=== PATIENT | female | born 1990 | race Caucasian/White ===

== ENCOUNTER 2016-10-11 07:20 | Emergency (ER) | payer OTHER ==
[~2016-10-11] VITALS: Ht 170.2 cm; Wt 111.6 kg
[~2016-10-11 07:20] MED LIST: HYDR-971 PO; NAPR550T PO
[2016-10-11 07:30] VITALS: BP 188/98
[2016-10-11] MEDS ORDERED: MORP15TA PO (07:37)
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
[2016-10-11] MEDS ORDERED: MORPHINE IR 15 MG TABLET PO ONE (07:45)
--- NOTE | 2016-10-11 08:52 | RAD ---
Indication injury, pain. AP oblique and lateral views of the right ankle were obtained. Talar screws are noted. There are degenerative changes at the tibiotalar joint and between the calcaneus and talus. An acute bony finding is not seen.
== END 2016-10-11 09:15 | disposition home or self-care (01) ==
LOC: ER 07:28
DX: M25.571 Pain in right ankle and joints of right foot (principal); F41.9 Anxiety disorder, unspecified; F31.9 Bipolar disorder, unspecified; I10 Essential (primary) hypertension; G43.909 Migraine, unspecified, not intractable, without status migrainosus; Z90.49 Acquired absence of other specified parts of digestive tract; G47.00 Insomnia, unspecified; Z88.8 Allergy status to other drugs, medicaments and biological substances
CPT/HCPCS: 73610; 99284

== ENCOUNTER 2017-01-19 19:50 | Emergency (ER) | payer OTHER ==
[~2017-01-19] VITALS: Ht 167.6 cm; Wt 109.8 kg
[~2017-01-19 19:50] MED LIST changes: +MORP15TA PO
[2017-01-19 20:19] LABS: BILIRUBIN,URINE SMALL (NEG); GLUCOSE,URINE NEGATIVE (NEG); NITRITE,URINE POSITIVE (NEG); PH,URINE 5.5; PROTEIN,URINE 30 mg/dL (NEG-TRACE)
[2017-01-19 20:21] LABS: BASO # 0.1 x10^3/uL (0.0-0.2); BASO % 1 % (0-3); EOS % 2 % (0-3); HEMATOCRIT 34.8 % (36.0-47.0); LYMPH # 2.2 x10^3/uL (1.0-4.8); LYMPH % 20 % (24-48); MEAN CORPUSCULAR HEMOGLOBIN 26 pg (25-35); MEAN CORPUSCULAR HGB CONC 32 g/dL (31-37); MEAN CORPUSCULAR VOLUME 81 fL (79-100); MONO % 6 % (0-9); NEUT % 70 % (31-73); PLATELET COUNT 290 x10^3/uL (140-400); RED BLOOD COUNT 4.31 x10^6/uL (3.50-5.40); RED CELL DISTRIBUTION WIDTH 17.2 % (11.5-14.5)
[2017-01-19 20:27] LABS: BACTERIA,URINE FEW /HPF (0-FEW); RBC,URINE 0 /HPF (0-2); SQUAMOUS EPITHELIAL CELL,UR MANY /LPF; WBC,URINE >40 /HPF (0-4)
[2017-01-19 20:36] LABS: CALCIUM 8.9 mg/dL (8.5-10.1); CREATININE 1.1 mg/dL (0.6-1.0); GFR 59.1; POTASSIUM 3.6 mmol/L (3.5-5.1)
[2017-01-19 20:41] LABS: ALBUMIN 3.3 g/dL (3.4-5.0); ALBUMIN/GLOBULIN RATIO 0.8 (1.0-1.7); TOTAL BILIRUBIN 0.1 mg/dL (0.2-1.0); TOTAL PROTEIN 7.4 g/dL (6.4-8.2)
[2017-01-19] MEDS ORDERED: HYDROmorphone 2 MG/ML VIAL IV/SQ PRN (20:45)
[2017-01-19] MEDS ORDERED: ONDANSETRON PF 4 MG/2 ML VIAL. IV ONE (21:00)
[2017-01-19] MEDS ORDERED: IV NORMAL SALINE 1000ML BAG 1,000 ML IV SCH (21:00)
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
[2017-01-19] MEDS ORDERED: SULF1TAB24 PO (23:06)
[2017-01-19] MEDS ORDERED: HYDR-2758 PO (23:06)
[2017-01-19 23:07] VITALS: BP 128/60
== END 2017-01-19 23:33 | disposition home or self-care (01) ==
LOC: ER 19:50
DX: N39.0 Urinary tract infection, site not specified (principal); G43.909 Migraine, unspecified, not intractable, without status migrainosus; I10 Essential (primary) hypertension; F31.9 Bipolar disorder, unspecified; Z90.49 Acquired absence of other specified parts of digestive tract; Z88.8 Allergy status to other drugs, medicaments and biological substances
CPT/HCPCS: 36415; 80053; 81001; 81025; 83690; 85025; 87086; 96365; 96375; 99284; J0690; J1170; J2405; J7030; 87186

== ENCOUNTER 2017-02-09 19:06 | Emergency (ER) | payer OTHER ==
[~2017-02-09] VITALS: Ht 172.7 cm; Wt 109.8 kg
[~2017-02-09 19:06] MED LIST changes: +HYDR-2758 PO; +NAPR-682 PO; -NAPR550T PO; +SULF1TAB24 PO
[2017-02-09 19:16] VITALS: BP 189/112
[2017-02-09] MEDS ORDERED: NAPR500T PO (19:22)
[2017-02-09] MEDS ORDERED: CYCL10TA2 PO (19:22)
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
[2017-02-09] MEDS ORDERED: KETOROLAC 60 MG/2 ML INJ. IM ONE (19:45)
== END 2017-02-09 19:28 | disposition home or self-care (01) ==
LOC: ER 19:06
DX: S46.812A Strain of other muscles, fascia and tendons at shoulder and upper arm level, left arm, initial encounter (principal); I10 Essential (primary) hypertension; G43.909 Migraine, unspecified, not intractable, without status migrainosus; F41.9 Anxiety disorder, unspecified; Z88.8 Allergy status to other drugs, medicaments and biological substances; X58.XXXA Exposure to other specified factors, initial encounter; Y93.89 Activity, other specified; Y99.8 Other external cause status; Y92.89 Other specified places as the place of occurrence of the external cause
CPT/HCPCS: 96372; 99283; J1885

== ENCOUNTER 2017-02-24 10:43 | Emergency (ER) | payer OTHER ==
[~2017-02-24 10:43] MED LIST changes: +CYCL10TA2 PO; +NAPR500T PO
[2017-02-24 10:48] VITALS: BP 164/100
[2017-02-24] MEDS ORDERED: METHOCARBAMOL 500 MG TABLET PO STA (11:13)
[2017-02-24] MEDS ORDERED: traMADol 50 MG TABLET PO ONE (11:15)
[2017-02-24] MEDS ORDERED: predniSONE 20 MG TABLET PO ONE (11:15)
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
[2017-02-24] MEDS ORDERED: METH-37 PO (12:05)
[2017-02-24] MEDS ORDERED: TRAM-48 PO (12:05)
[2017-02-24] MEDS ORDERED: METH4TAB2 PO (12:05)
== END 2017-02-24 12:07 | disposition home or self-care (01) ==
LOC: ER 10:43
DX: G89.29 Other chronic pain (principal); M54.89 Other dorsalgia; I10 Essential (primary) hypertension; F31.9 Bipolar disorder, unspecified; G43.909 Migraine, unspecified, not intractable, without status migrainosus; G47.00 Insomnia, unspecified; Z90.49 Acquired absence of other specified parts of digestive tract; Z88.8 Allergy status to other drugs, medicaments and biological substances
CPT/HCPCS: 99284; J7512

== ENCOUNTER 2017-03-16 13:25 | Emergency (ER) | payer OTHER ==
[~2017-03-16 13:25] MED LIST changes: +METH-37 PO; +METH4TAB2 PO; +TRAM-48 PO
[2017-03-16 13:40] VITALS: BP 159/94
[2017-03-16 14:01] LABS: BILIRUBIN,URINE NEGATIVE (NEG); GLUCOSE,URINE NEGATIVE (NEG); NITRITE,URINE NEGATIVE (NEG); PROTEIN,URINE NEGATIVE (NEG-TRACE); UROBILINOGEN,URINE 0.2 mg/dL (0.2 mg/dL)
[2017-03-16] MEDS ORDERED: ONDANSETRON ODT 4 MG TAB.RAPDIS. PO ONE (14:15)
[2017-03-16] MEDS ORDERED: KETOROLAC TROMETHAMINE 10 MG TABLET PO ONE (14:15)
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
[2017-03-16 14:20] LABS: BACTERIA,URINE MODERATE /HPF (0-FEW); RBC,URINE >40 /HPF (0-2); SQUAMOUS EPITHELIAL CELL,UR MOD /LPF
--- NOTE | 2017-03-16 15:56 | RAD ---
CT study of the abdomen and pelvis without contrast Clinical indications: Right sided flank pain and back pain and hematuria. History of kidney stones. Technique: Noncontrast helical CT scanning of the abdomen and pelvis was performed. Without contrast, the sensitivity to detect organ pathology and GI tract pathology is decreased. PQRS Compliance Statement: One or more of the following individualized dose reduction techniques were utilized for this examination: 1. Automated exposure control 2. Adjustment of the mA and/or kV according to patient size 3. Use of iterative reconstruction technique Comparison: None available. Findings: The liver and spleen and pancreas are homogeneous in appearance on this noncontrast study. The spleen is mildly enlarged measuring 13.8 cm in length. The gallbladder is surgically absent. No extra hepatic biliary ductal dilatation is seen. No adrenal mass is evident. No hydronephrosis or hydroureter or urinary tract stone is evident. Urinary bladder wall is smooth. IUD is seen within the central aspect of the uterus which is proper positioning. No dominant ovarian cyst or mass is seen. No focal aneurysmal dilatation of the abdominal aorta is seen. No enlarged abdominal or pelvic lymphadenopathy is seen. The appendix is normal. No obstructive bowel pattern is evident. No free air or free fluid or mesenteric inflammatory change is seen. No lung base consolidation is seen. No osteolytic process is seen. IMPRESSION: No acute abnormality of the abdomen or pelvis is seen. Mild splenomegaly.
== END 2017-03-16 15:40 | disposition left against medical advice (07) ==
LOC: ER 13:25
DX: N39.0 Urinary tract infection, site not specified (principal); F31.9 Bipolar disorder, unspecified; G43.909 Migraine, unspecified, not intractable, without status migrainosus; I10 Essential (primary) hypertension; Z87.442 Personal history of urinary calculi; Z90.49 Acquired absence of other specified parts of digestive tract; Z88.8 Allergy status to other drugs, medicaments and biological substances
CPT/HCPCS: 74176; 81001; 81025; 87086; 99285; Q0162

== ENCOUNTER 2018-05-01 22:26 | Emergency (ER) | payer MEDICAID, OTHER ==
[~2018-05-01] VITALS: Ht 172.7 cm; Wt 122.5 kg
[~2018-05-01 22:26] MED LIST changes: -HYDR-2758 PO; +HYDR-2761 PO; +HYDR-3164 PO; -HYDR-971 PO; +NAPR-683 PO; -NAPR500T PO
[2018-05-01 22:30] VITALS: BP 154/91
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
[2018-05-01] MEDS ORDERED: BENZ100C PO (23:28)
[2018-05-01] MEDS ORDERED: PRED50TA PO (23:28)
[2018-05-01] MEDS ORDERED: PROAIR HFA8.5 GM INH (23:28)
[2018-05-01] MEDS ORDERED: DEXAMETHASONE SOD PHOS 20 MG/5 ML VIAL. PO ONE (23:30)
== END 2018-05-01 23:51 | disposition home or self-care (01) ==
LOC: ER 22:26
DX: J06.9 Acute upper respiratory infection, unspecified (principal); F41.9 Anxiety disorder, unspecified; F31.9 Bipolar disorder, unspecified; I10 Essential (primary) hypertension; G43.909 Migraine, unspecified, not intractable, without status migrainosus; Z90.49 Acquired absence of other specified parts of digestive tract; Z87.442 Personal history of urinary calculi; Z98.890 Other specified postprocedural states; Z88.8 Allergy status to other drugs, medicaments and biological substances
CPT/HCPCS: 81025; 99283; J1100

== ENCOUNTER 2018-05-30 19:06 | Emergency (ER) | payer SELFPAY ==
[~2018-05-30] VITALS: Ht 172.7 cm; Wt 118.8 kg
[~2018-05-30 19:06] MED LIST changes: +ALBU2.5V8 INH; +BENZ100C PO; +PRED50TA PO
[2018-05-30 19:40] LABS: BILIRUBIN,URINE NEGATIVE (NEG); CLARITY,URINE CLEAR; COLOR,URINE YELLOW; NITRITE,URINE NEGATIVE (NEG); PROTEIN,URINE NEGATIVE (NEG-TRACE); UROBILINOGEN,URINE 0.2 mg/dL (0.2 mg/dL)
[2018-05-30] MEDS ORDERED: KETOROLAC 30 MG/ML VIAL. IV ONE (19:45)
[2018-05-30] MEDS ORDERED: fentaNYL PF VIAL 100 MCG/2 ML VIAL IV ONE ×2 (19:45→20:30)
[2018-05-30] MEDS ORDERED: ONDANSETRON PF 4 MG/2 ML VIAL. IV ONE (19:45)
[2018-05-30] MEDS ORDERED: IV NORMAL SALINE 1000ML BAG 1,000 ML IV ONE (19:45)
[2018-05-30 19:51] LABS: BASO # 0.1 x10^3/uL (0.0-0.2); BASO % 1 % (0-3); EOS # 0.5 x10^3/uL (0.0-0.7); EOS % 6 % (0-3); HEMOGLOBIN 13.9 g/dL (12.0-15.5); LYMPH # 2.2 x10^3/uL (1.0-4.8); LYMPH % 26 % (24-48); MEAN CORPUSCULAR HEMOGLOBIN 29 pg (25-35); MEAN CORPUSCULAR HGB CONC 35 g/dL (31-37); MEAN CORPUSCULAR VOLUME 83 fL (79-100); MONO # 0.5 x10^3/uL (0.0-1.1); MONO % 6 % (0-9); NEUT % 60 % (31-73); PLATELET COUNT 272 x10^3/uL (140-400); RED CELL DISTRIBUTION WIDTH 16.1 % (11.5-14.5); WHITE BLOOD COUNT 8.4 x10^3/uL (4.0-11.0)
[2018-05-30 19:59] LABS: CALCIUM 8.9 mg/dL (8.5-10.1); GFR 65.1; POTASSIUM 3.6 mmol/L (3.5-5.1)
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
[2018-05-30 20:03] LABS: BACTERIA,URINE MODERATE /HPF (0-FEW); RBC,URINE OCC /HPF (0-2); SQUAMOUS EPITHELIAL CELL,UR MANY /LPF; WBC,URINE OCC /HPF (0-4)
[2018-05-30 20:05] LABS: ALBUMIN 3.1 g/dL (3.4-5.0); ALBUMIN/GLOBULIN RATIO 0.8 (1.0-1.7); TOTAL BILIRUBIN 0.1 mg/dL (0.2-1.0); TOTAL PROTEIN 7.1 g/dL (6.4-8.2)
--- NOTE | 2018-05-30 20:44 | RAD ---
PQRS Compliance Statement: One or more of the following individualized dose reduction techniques were utilized for this examination: 1. Automated exposure control 2. Adjustment of the mA and/or kV according to patient size 3. Use of iterative reconstruction technique CT ABDOMEN PELVIS WO CONTRAST Clinical Indication: RLQ & RIGHT FLANK PAIN, BLOOD IN URINE, X 1 DAY Comparison: CT abdomen and pelvis without contrast, March 16, 2017. Technique: Helical CT imaging of the abdomen and pelvis is performed without IV or oral contrast. Findings: Mild atelectasis or scarring in the bilateral lower lobes. Cardiac size is normal. Cholecystectomy. The liver, spleen, pancreas, adrenal glands, abdominal aorta, and kidneys are normal. No obvious abnormality of the stomach. Small fat-containing umbilical hernia. There is no dilated small bowel. There are a few diverticula of the sigmoid colon without inflammation. There is no colon wall thickening. The appendix is normal. No abdominal adenopathy or free fluid. Urinary bladder is not well distended, otherwise normal. IUD in the uterus, positioned more inferiorly than on the prior study. The right ovary is larger than the left, there is at least one functional cyst measuring 1.9 cm. There is no pelvic free fluid. There is right femur intramedullary franklin. Schmorl's node superior endplate of L4. IMPRESSION: 1. No obstructive uropathy. 2. The appendix is normal. 3. Right ovary is larger than the left. There is at least one small right ovary functional cyst. There is no pelvic free fluid. 4. IUD in the uterus, positioned more inferiorly than on the prior study. 5. Minimal sigmoid colon diverticulosis without diverticulitis. Electronically signed by: Desean Kirkpatrick MD (05/30/2018 8:40 PM) [id number]
[2018-05-30 20:50] VITALS: BP 148/86
[2018-05-30] MEDS ORDERED: HYDR-3164 PO (20:55)
[2018-05-30] MEDS ORDERED: CEPH-264 PO (20:55)
[2018-05-30] MEDS ORDERED: HYDROcodone/APAP 5/325MG 1 TAB TABLET ONE (21:11)
[2018-05-30] MEDS ORDERED: HYDROcodone/APAP 5/325MG 1 TAB TABLET PO ONE (21:15)
== END 2018-05-30 21:21 | disposition home or self-care (01) ==
LOC: ER 19:06
DX: N39.0 Urinary tract infection, site not specified (principal); N83.201 Unspecified ovarian cyst, right side; R11.2 Nausea with vomiting, unspecified; I10 Essential (primary) hypertension; G43.909 Migraine, unspecified, not intractable, without status migrainosus; Z87.442 Personal history of urinary calculi; Z90.49 Acquired absence of other specified parts of digestive tract; Z98.890 Other specified postprocedural states; Z88.8 Allergy status to other drugs, medicaments and biological substances
CPT/HCPCS: 36415; 74176; 80053; 81001; 81025; 85025; 87086; 96361; 96374; 96375; 96376; 99284; J1885; J2405; J3010; J7030; 87186

== ENCOUNTER 2018-06-01 19:55 | Emergency (ER) | payer SELFPAY ==
[~2018-06-01] VITALS: Ht 172.7 cm; Wt 118.8 kg
[~2018-06-01 19:55] MED LIST changes: +CEPH-264 PO
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
[2018-06-01] MEDS ORDERED: fentaNYL PF VIAL 100 MCG/2 ML VIAL IV ONE (20:45)
[2018-06-01] MEDS ORDERED: ONDANSETRON PF 4 MG/2 ML VIAL. IV ONE (20:45)
[2018-06-01] MEDS ORDERED: KETOROLAC 15 MG/ML VIAL. IV ONE (20:45)
[2018-06-01 20:55] LABS: BASO # 0.1 x10^3/uL (0.0-0.2); BASO % 1 % (0-3); EOS # 0.5 x10^3/uL (0.0-0.7); EOS % 6 % (0-3); HEMATOCRIT 40.1 % (36.0-47.0); HEMOGLOBIN 13.6 g/dL (12.0-15.5); LYMPH # 2.2 x10^3/uL (1.0-4.8); LYMPH % 24 % (24-48); MEAN CORPUSCULAR HEMOGLOBIN 29 pg (25-35); MEAN CORPUSCULAR HGB CONC 34 g/dL (31-37); MEAN CORPUSCULAR VOLUME 84 fL (79-100); MONO # 0.7 x10^3/uL (0.0-1.1); MONO % 7 % (0-9); NEUT # 5.9 x10^3uL (1.8-7.7); NEUT % 63 % (31-73); PLATELET COUNT 283 x10^3/uL (140-400); RED BLOOD COUNT 4.78 x10^6/uL (3.50-5.40); RED CELL DISTRIBUTION WIDTH 16.1 % (11.5-14.5); WHITE BLOOD COUNT 9.5 x10^3/uL (4.0-11.0)
[2018-06-01 21:00] LABS: BILIRUBIN,URINE NEGATIVE (NEG); CLARITY,URINE CLEAR; COLOR,URINE YELLOW; NITRITE,URINE NEGATIVE (NEG); PROTEIN,URINE NEGATIVE (NEG-TRACE); UROBILINOGEN,URINE 0.2 mg/dL (0.2 mg/dL)
[2018-06-01 21:11] LABS: CALCIUM 8.7 mg/dL (8.5-10.1); CREATININE 0.7 mg/dL (0.6-1.0); GFR 98.3; POTASSIUM 3.9 mmol/L (3.5-5.1)
[2018-06-01 21:16] LABS: ALBUMIN 3.2 g/dL (3.4-5.0); ALBUMIN/GLOBULIN RATIO 0.8 (1.0-1.7); TOTAL BILIRUBIN 0.2 mg/dL (0.2-1.0); TOTAL PROTEIN 7.2 g/dL (6.4-8.2)
[2018-06-01 21:29] LABS: BACTERIA,URINE FEW /HPF (0-FEW); RBC,URINE OCC /HPF (0-2); SQUAMOUS EPITHELIAL CELL,UR MANY /LPF
[2018-06-01] MEDS ORDERED: MORPHINE SULFATE 4 MG/ML VIAL. IV ONE (21:45)
[2018-06-01 22:12] VITALS: BP 143/71
--- NOTE | 2018-06-01 22:12 | RAD ---
PELVIS W/TV Clinical Indication: PELVIC PAIN STARTED ON THE RT LAST FRIDAY INCREASE PELVIC PAIN Comparison: None. TECHNIQUE: Real-time ultrasound imaging of the pelvis using transabdominal and transvaginal window is performed. Findings: Uterus measures 8.1 x 5.4 x 4.5 cm. No focal abnormality. Endometrial stripe is normal measuring 9 mm. IUD is noted in the endocervical canal. No pelvic free fluid. The left ovary measures 3.7 x 2.1 x 2 cm. There is normal blood flow. The right ovary measures 5.2 x 4.3 x 3.7 cm. There is a right ovarian cyst with hypoechoic internal echoes measuring 4.1 x 3.3 x 3.3 cm. Color Doppler interrogation is negative. Cyst may be hemorrhagic. There is a simple functional cyst of the right ovary measuring up to 2.4 cm. Normal blood flow in the right ovary. IMPRESSION: 1. There is a 4.1 cm probable hemorrhagic cyst of the right ovary. 2. No pelvic free fluid. 3. Normal blood flow in the ovaries. 4. IUD is seen in the endocervical canal. Electronically signed by: Desean Kirkpatrick MD (06/01/2018 10:08 PM) [facility]
[2018-06-01] MEDS ORDERED: OXYC1TAB15 PO (22:23)
--- NOTE | 2018-06-03 09:10 | VNOTE ---
CALL BACK NOTE CALL BACK -spoke with pt re: cx result. 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
== END 2018-06-01 22:48 | disposition home or self-care (01) ==
LOC: ER 19:55
DX: N83.201 Unspecified ovarian cyst, right side (principal); I10 Essential (primary) hypertension; Z90.49 Acquired absence of other specified parts of digestive tract; Z88.8 Allergy status to other drugs, medicaments and biological substances
CPT/HCPCS: 36415; 76830; 76856; 80053; 81001; 81025; 85025; 96374; 96375; 99284; J1885; J2270; J2405; J3010

== ENCOUNTER 2018-07-06 11:57 | Emergency (ER) | payer SELFPAY ==
[~2018-07-06] VITALS: Ht 172.7 cm; Wt 119.7 kg
[~2018-07-06 11:57] MED LIST changes: +OXYC1TAB15 PO
[2018-07-06] MEDS ORDERED: IV NORMAL SALINE 1000ML BAG 1,000 ML IV ONE (12:30)
[2018-07-06 12:36] LABS: BILIRUBIN,URINE NEGATIVE (NEG); CLARITY,URINE CLEAR; COLOR,URINE YELLOW; NITRITE,URINE NEGATIVE (NEG); PROTEIN,URINE NEGATIVE (NEG-TRACE); UROBILINOGEN,URINE 0.2 mg/dL (0.2 mg/dL)
[2018-07-06 12:44] LABS: U PREG PATIENT NEGATIVE (NEG)
[2018-07-06] MEDS ORDERED: KETOROLAC 30 MG/ML VIAL. IV ONE (12:45)
[2018-07-06] MEDS ORDERED: ONDANSETRON PF 4 MG/2 ML VIAL. IV ONE (12:45)
[2018-07-06] MEDS ORDERED: fentaNYL PF VIAL 100 MCG/2 ML VIAL IV ONE ×2 (12:45→15:00)
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
[2018-07-06 12:51] LABS: BASO # 0.2 x10^3/uL (0.0-0.2); BASO % 2 % (0-3); EOS # 0.5 x10^3/uL (0.0-0.7); EOS % 6 % (0-3); HEMATOCRIT 42.1 % (36.0-47.0); HEMOGLOBIN 13.9 g/dL (12.0-15.5); LYMPH # 1.9 x10^3/uL (1.0-4.8); LYMPH % 21 % (24-48); MEAN CORPUSCULAR HEMOGLOBIN 28 pg (25-35); MEAN CORPUSCULAR HGB CONC 33 g/dL (31-37); MEAN CORPUSCULAR VOLUME 85 fL (79-100); MONO # 0.4 x10^3/uL (0.0-1.1); MONO % 5 % (0-9); NEUT # 5.9 x10^3uL (1.8-7.7); NEUT % 67 % (31-73); PLATELET COUNT 302 x10^3/uL (140-400); RED BLOOD COUNT 4.95 x10^6/uL (3.50-5.40); RED CELL DISTRIBUTION WIDTH 15.3 % (11.5-14.5); WHITE BLOOD COUNT 8.9 x10^3/uL (4.0-11.0)
[2018-07-06 12:54] LABS: BACTERIA,URINE MANY /HPF (0-FEW); SQUAMOUS EPITHELIAL CELL,UR MANY /LPF
[2018-07-06 12:55] LABS: RBC,URINE 0 /HPF (0-2)
--- NOTE | 2018-07-06 13:47 | RAD ---
PQRS Compliance statement: One or more of the following individualized dose reduction techniques were utilized for this examination: 1. Automated exposure control. 2. Adjustment of the mA and/or kV according to patient size. 3. Use of iterative reconstruction technique. Indication:R FLANK PAIN PREV SENT TECHNIQUE: CT abdomen and pelvis without IV contrast with multiplanar reformats. COMPARISON: 05/30/2018 FINDINGS: Limited evaluation of solid abdominal and pelvic organs due to lack of IV contrast. Heart is normal in size. No pericardial or pleural effusion. Breathing motion artifact is seen in the lung bases. Noncontrast appearance of the liver, spleen, pancreas, adrenals within normal limits. Status post cholecystectomy. Punctate nonobstructing left renal stone. No hydronephrosis. No retroperitoneal or pelvic adenopathy. No free pelvic fluid or ascites. No bowel obstruction. Normal appendix. Anteverted uterus with IUD no suspicious bony lesion. IMPRESSION: Limited evaluation of solid abdominal and pelvic organs due to lack of IV contrast. Punctate nonobstructing left renal stone. Electronically signed by: Edwar Eason DO (07/06/2018 1:43 PM) [id number]
[2018-07-06 14:08] LABS: CALCIUM 9.1 mg/dL (8.5-10.1); CREATININE 0.8 mg/dL (0.6-1.0); GFR 84.2; POTASSIUM 3.8 mmol/L (3.5-5.1)
[2018-07-06 14:13] LABS: ALBUMIN 3.3 g/dL (3.4-5.0); ALBUMIN/GLOBULIN RATIO 0.8 (1.0-1.7); TOTAL BILIRUBIN 0.1 mg/dL (0.2-1.0); TOTAL PROTEIN 7.2 g/dL (6.4-8.2)
--- NOTE | 2018-07-06 15:46 | RAD ---
Indication:History of ovarian cysts. Right lower abdominal pain. TECHNIQUE: Grayscale, color Doppler and spectral waveform images of the pelvis obtained. COMPARISON: 06/01/2018 FINDINGS: The uterus is anteverted and measures 8.4 x 5.8 x 6.0 cm (longitudinal, AP, transverse). IUD is noted in the lower endometrial canal. Trace amount of fluid is seen in the endocervical canal. The right ovary measures 5.3 x 4.3 x 4.5 cm and shows blood flow. There is a 3.7 x 3.3 x 3.2 cm well-circumscribed isoechoic lesion in the right ovary, previously measuring 4.2 x 3.3 x 3.0 cm. Simple appearing cyst is seen in the right ovary measuring 2.4 x 2.1 x 1.8 cm, previously 2.0 x 2.5 x 1.5 cm. Left ovary measures 3.1 x 3.0 x 3.0 cm and shows blood flow. IMPRESSION: 1. IUD is seen in the lower endocervical canal. 2. Minimal interval decrease in the size of right ovarian isoechoic predominantly solid lesion when compared to previous exam. Differential diagnoses includes hemorrhagic cyst or endometrioma. Short-term follow-up with ultrasound in 2 months recommended. 3. Relatively stable simple cyst in the right ovary. Bilateral ovaries demonstrate evidence of blood flow. Electronically signed by: Edwar Esaon DO (07/06/2018 3:42 PM) [id number]
[2018-07-06 16:00] VITALS: BP 142/80
[2018-07-06] MEDS ORDERED: IBUP-1007 PO (16:04)
[2018-07-06] MEDS ORDERED: HYDR-3164 PO (16:04)
[2018-07-06] MEDS ORDERED: HYDROcodone/APAP 5/325MG 1 TAB TABLET PO ONE (16:15)
== END 2018-07-06 16:27 | disposition home or self-care (01) ==
LOC: ER 11:57
DX: N83.201 Unspecified ovarian cyst, right side (principal); N20.0 Calculus of kidney; I10 Essential (primary) hypertension; Z90.49 Acquired absence of other specified parts of digestive tract
CPT/HCPCS: 36415; 74176; 76830; 76856; 80053; 81001; 81025; 85025; 87086; 96374; 96375; 96376; 99284; J1885; J2405; J3010; J7030

== ENCOUNTER 2018-09-28 17:29 | Emergency (ER) | payer OTHER ==
[~2018-09-28] VITALS: Ht 172.7 cm; Wt 119.7 kg
[~2018-09-28 17:29] MED LIST changes: +IBUP-1007 PO
[2018-09-28] MEDS ORDERED: HYDROcodone/APAP 5/325MG 1 TAB TABLET PO ONE (18:15)
[2018-09-28 18:18] LABS: BILIRUBIN,URINE NEGATIVE (NEG); CLARITY,URINE CLEAR; COLOR,URINE YELLOW; NITRITE,URINE NEGATIVE (NEG); PH,URINE 6.5; PROTEIN,URINE NEGATIVE (NEG-TRACE); UROBILINOGEN,URINE 0.2 mg/dL (0.2 mg/dL)
[2018-09-28 18:23] LABS: SQUAMOUS EPITHELIAL CELL,UR MANY /LPF
[2018-09-28 18:25] LABS: BACTERIA,URINE MODERATE /HPF (0-FEW); WBC,URINE 20-40 /HPF (0-4)
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
[2018-09-28 18:58] LABS: BASO # 0.2 x10^3/uL (0.0-0.2); BASO % 1 % (0-3); EOS # 0.5 x10^3/uL (0.0-0.7); EOS % 4 % (0-3); HEMATOCRIT 42.2 % (36.0-47.0); HEMOGLOBIN 14.3 g/dL (12.0-15.5); LYMPH # 2.6 x10^3/uL (1.0-4.8); LYMPH % 23 % (24-48); MEAN CORPUSCULAR HEMOGLOBIN 28 pg (25-35); MEAN CORPUSCULAR HGB CONC 34 g/dL (31-37); MEAN CORPUSCULAR VOLUME 83 fL (79-100); MONO # 0.6 x10^3/uL (0.0-1.1); MONO % 5 % (0-9); NEUT # 7.6 x10^3uL (1.8-7.7); NEUT % 66 % (31-73); PLATELET COUNT 279 x10^3/uL (140-400); RED BLOOD COUNT 5.07 x10^6/uL (3.50-5.40); RED CELL DISTRIBUTION WIDTH 14.6 % (11.5-14.5); WHITE BLOOD COUNT 11.4 x10^3/uL (4.0-11.0)
[2018-09-28 19:18] LABS: CALCIUM 8.5 mg/dL (8.5-10.1); CREATININE 0.8 mg/dL (0.6-1.0); GFR 84.2
[2018-09-28 19:24] LABS: ALBUMIN 3.5 g/dL (3.4-5.0); ALBUMIN/GLOBULIN RATIO 0.9 (1.0-1.7); TOTAL BILIRUBIN 0.3 mg/dL (0.2-1.0); TOTAL PROTEIN 7.6 g/dL (6.4-8.2)
[2018-09-28 19:53] VITALS: BP 164/99
[2018-09-28] MEDS ORDERED: CEPH500C PO (20:14)
--- NOTE | 2018-09-28 20:29 | RAD ---
Pelvic ultrasound HISTORY: Right abdominal pain. FINDINGS: Endovaginal scanning is performed. Study is technically difficult due to large body habitus. The uterus measures 8.2 x 5.8 x 4.8 cm. Endometrial stripe measures 8 mm. There may be an intrauterine device in place. Trace fluid is seen within the cervix. Right ovary measures 5.9 x 4.2 x 3.5 cm with intact blood supply. There is an echogenic lesion within the right ovary measuring 3.7 cm diameter, may be a hemorrhagic cyst, this does demonstrate posterior acoustic enhancement. Follicles are also identified within the right ovary, largest simple appearing cyst measures 2.1 cm long axis diameter. Left ovary not visualized. No significant free fluid is identified. IMPRESSION: Echogenic lesion within the right ovary, may represent a 3.7 cm hemorrhagic cyst. This was also seen on the prior study of 07/06/2018. Therefore, recommend continued sonographic follow-up, in about 6 weeks, to better exclude other etiology. Electronically signed by: Scott Brown MD (09/28/2018 8:26 PM) [facility]
== END 2018-09-28 20:24 | disposition home or self-care (01) ==
LOC: ER 17:29
DX: N39.0 Urinary tract infection, site not specified (principal); I10 Essential (primary) hypertension; F17.200 Nicotine dependence, unspecified, uncomplicated; Z87.442 Personal history of urinary calculi; Z90.49 Acquired absence of other specified parts of digestive tract; Z88.8 Allergy status to other drugs, medicaments and biological substances
CPT/HCPCS: 36415; 76856; 80053; 81001; 81025; 85025; 87086; 99285-25

== ENCOUNTER 2018-10-28 18:03 | Emergency (ER) | payer OTHER ==
[~2018-10-28] VITALS: Ht 172.7 cm; Wt 121.6 kg
[~2018-10-28 18:03] MED LIST changes: +CEPH500C PO
[2018-10-28 18:24] LABS: BILIRUBIN,URINE NEGATIVE (NEG); CLARITY,URINE CLOUDY; COLOR,URINE YELLOW; NITRITE,URINE NEGATIVE (NEG); PROTEIN,URINE NEGATIVE (NEG-TRACE); UROBILINOGEN,URINE 0.2 mg/dL (0.2 mg/dL)
[2018-10-28] MEDS ORDERED: ONDANSETRON PF 4 MG/2 ML VIAL. IV ONE (18:30)
[2018-10-28] MEDS ORDERED: MORPHINE SULFATE 10 MG/ML VIAL. IV ONE (18:30)
[2018-10-28] MEDS ORDERED: TAMSULOSIN 0.4 MG CAP.ER.24H. PO ONE (18:30)
[2018-10-28] MEDS ORDERED: KETOROLAC 30 MG/ML VIAL. IV ONE (18:30)
[2018-10-28 18:31] LABS: SQUAMOUS EPITHELIAL CELL,UR MOD /LPF
[2018-10-28 18:32] LABS: BACTERIA,URINE MANY /HPF (0-FEW); WBC,URINE TNTC /HPF (0-4)
[2018-10-28 18:40] LABS: BASO # 0.1 x10^3/uL (0.0-0.2); BASO % 1 % (0-3); EOS # 0.5 x10^3/uL (0.0-0.7); EOS % 5 % (0-3); HEMOGLOBIN 14.6 g/dL (12.0-15.5); LYMPH # 2.5 x10^3/uL (1.0-4.8); LYMPH % 25 % (24-48); MEAN CORPUSCULAR HEMOGLOBIN 28 pg (25-35); MEAN CORPUSCULAR HGB CONC 33 g/dL (31-37); MEAN CORPUSCULAR VOLUME 83 fL (79-100); MONO # 0.5 x10^3/uL (0.0-1.1); MONO % 5 % (0-9); NEUT # 6.4 x10^3uL (1.8-7.7); NEUT % 65 % (31-73); PLATELET COUNT 273 x10^3/uL (140-400); RED BLOOD COUNT 5.27 x10^6/uL (3.50-5.40); RED CELL DISTRIBUTION WIDTH 14.9 % (11.5-14.5)
[2018-10-28] MEDS ORDERED: IV NORMAL SALINE 1000ML BAG 1,000 ML IV ONE (18:45)
[2018-10-28 18:52] LABS: CREATININE 0.8 mg/dL (0.6-1.0); GFR 84.2; POTASSIUM 3.6 mmol/L (3.5-5.1)
[2018-10-28 18:57] LABS: ALBUMIN 3.6 g/dL (3.4-5.0); ALBUMIN/GLOBULIN RATIO 0.8 (1.0-1.7); TOTAL BILIRUBIN 0.2 mg/dL (0.2-1.0); TOTAL PROTEIN 7.9 g/dL (6.4-8.2)
[2018-10-28] MEDS ORDERED: HYDROmorphone 2 MG/ML VIAL IV ONE (19:00)
[2018-10-28] MEDS ORDERED: cloNIDine HCL 0.1 MG TABLET PO ONE (19:15)
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
[2018-10-28 19:28] LABS: BARBITURATES NEG (NEG); BENZODIAZEPINES POS (NEG); CANNABINOIDS NEG (NEG); COCAINE NEG (NEG); METHADONE NEG (NEG); OPIATES NEG (NEG); PHENCYCLIDINE NEG (NEG)
[2018-10-28 19:29] LABS: AMPHETAMINE/METHAMPHETAMINE NEG (NEG)
[2018-10-28] MEDS ORDERED: cefTRIAXone IV Push 1 GM VIAL. IVP ONE (19:30)
[2018-10-28 20:56] VITALS: BP 162/104
--- NOTE | 2018-10-28 20:56 | RAD ---
CT scan of the abdomen and pelvis without contrast 10/28/2018 CLINICAL HISTORY: Right flank pain. TECHNIQUE: Unenhanced, contiguous, 2 mm axial sections were obtained through the abdomen and pelvis. One or more of the following individualized dose reduction techniques were utilized for this study: 1. Automated exposure control. 2. Adjustment of the mA and/or kV according to patient size. 3. Use of iterative reconstruction technique. FINDINGS: Comparison study is dated 07/06/2018. Images through the lung bases demonstrate minimal dependent subsegmental atelectasis bilaterally. The liver, spleen, pancreas, adrenal glands are within normal limits. No renal or ureteral calculus is seen. There is no evidence of obstruction of either collecting system. Surgical clips are seen within the gallbladder fossa consistent with a cholecystectomy. No free fluid or free air is within the abdomen. There is no evidence of bowel obstruction. The appendix is well-visualized and is within normal limits. Images through pelvis demonstrate the urinary bladder with urine. A 5.1 cm oval-shaped mass is seen in the right adnexa which is unchanged from the previous examination. An IUD is seen within the expected location of the endometrial canal of the uterus. No free fluid is seen. The osseous structures are unchanged. IMPRESSION: No acute abnormality is seen. Electronically signed by: Tariq Nathan MD (10/28/2018 8:53 PM) [facility]
[2018-10-28] MEDS ORDERED: CEPH-264 PO (21:10)
== END 2018-10-28 21:25 | disposition home or self-care (01) ==
LOC: ER 18:03
DX: N39.0 Urinary tract infection, site not specified (principal); R11.2 Nausea with vomiting, unspecified; I10 Essential (primary) hypertension; Z87.442 Personal history of urinary calculi; Z90.49 Acquired absence of other specified parts of digestive tract; Z88.8 Allergy status to other drugs, medicaments and biological substances
CPT/HCPCS: 36415; 74176; 80053; 80307; 81001; 81025; 83690; 85025; 87086; 96361; 96374; 96375; 99285; G0480; J0696; J1170; J1885; J2270; J2405; J7030; 87186

== ENCOUNTER 2019-01-07 18:09 | Emergency (ER) | payer BC, OTHER ==
[~2019-01-07] VITALS: Ht 172.7 cm; Wt 115.2 kg
[2019-01-07 19:19] LABS: BILIRUBIN,URINE NEGATIVE (NEG); CLARITY,URINE CLEAR; COLOR,URINE YELLOW; NITRITE,URINE NEGATIVE (NEG); PROTEIN,URINE NEGATIVE (NEG-TRACE); UROBILINOGEN,URINE 0.2 mg/dL (0.2 mg/dL)
[2019-01-07 19:30] LABS: BACTERIA,URINE MODERATE /HPF (0-FEW); RBC,URINE 0 /HPF (0-2); SQUAMOUS EPITHELIAL CELL,UR MOD /LPF; WBC,URINE OCC /HPF (0-4)
[2019-01-07] MEDS ORDERED: ONDANSETRON PF 4 MG/2 ML VIAL. ONE (19:37)
[2019-01-07 19:45] LABS: BASO # 0.1 x10^3/uL (0.0-0.2); BASO % 1 % (0-3); EOS # 0.4 x10^3/uL (0.0-0.7); EOS % 4 % (0-3); HEMATOCRIT 41.5 % (36.0-47.0); HEMOGLOBIN 13.9 g/dL (12.0-15.5); LYMPH # 2.3 x10^3/uL (1.0-4.8); LYMPH % 23 % (24-48); MEAN CORPUSCULAR HEMOGLOBIN 29 pg (25-35); MEAN CORPUSCULAR HGB CONC 34 g/dL (31-37); MEAN CORPUSCULAR VOLUME 85 fL (79-100); MONO # 0.6 x10^3/uL (0.0-1.1); MONO % 6 % (0-9); NEUT # 6.5 x10^3/uL (1.8-7.7); NEUT % 66 % (31-73); PLATELET COUNT 257 x10^3/uL (140-400); RED BLOOD COUNT 4.88 x10^6/uL (3.50-5.40); WHITE BLOOD COUNT 9.8 x10^3/uL (4.0-11.0)
[2019-01-07] MEDS ORDERED: fentaNYL PF VIAL 100 MCG/2 ML VIAL IV ONE ×2 (19:45→22:15)
[2019-01-07] MEDS ORDERED: IV NORMAL SALINE 1000ML BAG 1,000 ML IV ONE (19:45)
[2019-01-07] MEDS ORDERED: ONDANSETRON PF 4 MG/2 ML VIAL. IV ONE (20:00)
[2019-01-07 20:15] LABS: U PREG PATIENT NEGATIVE (NEG)
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
[2019-01-07 20:34] LABS: CALCIUM 8.5 mg/dL (8.5-10.1); CREATININE 0.8 mg/dL (0.6-1.0); GFR 84.2; POTASSIUM 3.6 mmol/L (3.5-5.1)
[2019-01-07 20:40] LABS: ALBUMIN 3.5 g/dL (3.4-5.0); ALBUMIN/GLOBULIN RATIO 0.9 (1.0-1.7); MAGNESIUM 1.7 mg/dL (1.8-2.4); TOTAL BILIRUBIN 0.2 mg/dL (0.2-1.0); TOTAL PROTEIN 7.6 g/dL (6.4-8.2)
--- NOTE | 2019-01-07 21:03 | RAD ---
EXAM: CT ABDOMEN/PELVIS WITHOUT CONTRAST. HISTORY: Left flank pain. TECHNIQUE: Computed tomography of the abdomen and pelvis was performed without intravenous contrast. COMPARISON: 11/28/2018. FINDINGS: Lung windows through the visualized portions of the bases reveal mild atelectasis. Bone windows reveal no suspicious lesions. Changes of internal fixation of a right femoral fracture are noted. There are no renal or ureteral calculi. There is no hydronephrosis. There are no suspicious renal lesions without contrast. The gallbladder is surgically absent. The liver, adrenal glands, pancreas, and spleen are unremarkable without contrast. There are no pathologically enlarged lymph nodes. The appendix is not inflamed. There is no small bowel obstruction. The right ovary is enlarged and contains multiple follicles. It measures 5.6 x 4.4 cm. The left ovary is unremarkable. An intrauterine device is noted in the lower uterine segment. IMPRESSION: 1. No renal or ureteral calculi. 2. Persistent right ovarian enlargement, not clearly changed. Pelvic ultrasound could further evaluate if there is persistent concern. 3. Intrauterine device in the lower uterine segment. *One or more of the following individualized dose reduction techniques were utilized for this examination: 1. Automated exposure control. 2. Adjustment of the mA and/or kV according to patient size. 3. Use of iterative reconstruction technique. Electronically signed by: Loree Rascon MD (01/07/2019 9:00 PM) [facility]
--- NOTE | 2019-01-07 22:34 | RAD ---
EXAM: PELVIC ULTRASOUND. HISTORY: Right adnexal tenderness. Right ovarian enlargement. COMPARISON: Today's CT, 06/01/2018. 09/28/2018. FINDINGS: Sonographic evaluation of the pelvis was performed transabdominally and transvaginally. The uterus is anteverted and measures 9.7 x 4.7 cm. The endometrial stripe measures 9 mm. An intrauterine device is noted in the lower uterine segment. No masses are identified. There is no significant free fluid. The right ovary measures 7.6 x 5.1 x 5.1 cm. It contains multiple lesions. The largest is heterogeneous with internal echoes and measures 4.2 x 3.9 cm. Another heterogeneous lesion with echogenic contents measures 2.0 x 1.9 cm. Another similar heterogeneous echogenic nodule measures 1.6 x 1.2 cm. Finally, a simple appearing follicle measures 2.1 x 2.0 cm. Some of these demonstrate flow along their periphery but not clearly internally. The left ovary measures 3.6 x 3.4 cm. There is normal Doppler flow bilaterally. There are no suspicious lesions. IMPRESSION: 1. Multiple heterogeneous cystic right ovarian lesions likely represent hemorrhagic follicles or endometriomas. 2 small lesions are new since 09/28/2018. The largest is not clearly changed. Ongoing follow-up is recommended if the diagnosis is not clear. Electronically signed by: Loree Rascon MD (01/07/2019 10:32 PM) [facility]
[2019-01-07 22:47] VITALS: BP 172/101
[2019-01-07] MEDS ORDERED: METR500T PO (23:04)
[2019-01-11 17:09] LABS: GC PROBE Negative (Negative)
== END 2019-01-07 23:30 | disposition home or self-care (01) ==
LOC: ER 18:09
DX: N83.201 Unspecified ovarian cyst, right side (principal); N76.0 Acute vaginitis; B96.89 Other specified bacterial agents as the cause of diseases classified elsewhere; F31.9 Bipolar disorder, unspecified; I10 Essential (primary) hypertension; F41.9 Anxiety disorder, unspecified; Z87.442 Personal history of urinary calculi; Z87.440 Personal history of urinary (tract) infections; Z88.6 Allergy status to analgesic agent; Z88.8 Allergy status to other drugs, medicaments and biological substances
CPT/HCPCS: 36415; 74176; 76830; 76856; 80053; 81001; 81025; 83735; 85025; 87086; 87491; 87591; 96374; 96375; 96376; 99285; J2405; J3010; J7030; Q0111

== ENCOUNTER 2019-01-24 13:35 | Emergency (ER) | payer SELFPAY ==
[~2019-01-24] VITALS: Ht 172.7 cm; Wt 99.8 kg
[~2019-01-24 13:35] MED LIST changes: +METR500T PO
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
[2019-01-24 14:56] LABS: BASO # 0.1 x10^3/uL (0.0-0.2); BASO % 1 % (0-3); BILIRUBIN,URINE NEGATIVE (NEG); CLARITY,URINE CLEAR; COLOR,URINE YELLOW; EOS # 0.3 x10^3/uL (0.0-0.7); EOS % 4 % (0-3); HEMATOCRIT 42.6 % (36.0-47.0); HEMOGLOBIN 14.6 g/dL (12.0-15.5); LYMPH # 1.7 x10^3/uL (1.0-4.8); LYMPH % 21 % (24-48); MEAN CORPUSCULAR HEMOGLOBIN 29 pg (25-35); MEAN CORPUSCULAR HGB CONC 34 g/dL (31-37); MEAN CORPUSCULAR VOLUME 85 fL (79-100); MONO # 0.4 x10^3/uL (0.0-1.1); MONO % 5 % (0-9); NEUT # 5.6 x10^3/uL (1.8-7.7); NEUT % 68 % (31-73); NITRITE,URINE NEGATIVE (NEG); PH,URINE 7.5; PLATELET COUNT 257 x10^3/uL (140-400); PROTEIN,URINE NEGATIVE (NEG-TRACE); RED BLOOD COUNT 5.01 x10^6/uL (3.50-5.40); UROBILINOGEN,URINE 0.2 mg/dL (0.2 mg/dL); WHITE BLOOD COUNT 8.1 x10^3/uL (4.0-11.0)
[2019-01-24 15:10] LABS: CALCIUM 8.9 mg/dL (8.5-10.1); CREATININE 0.9 mg/dL (0.6-1.0); GFR 73.5; POTASSIUM 4.1 mmol/L (3.5-5.1)
[2019-01-24 15:11] LABS: BACTERIA,URINE FEW /HPF (0-FEW); RBC,URINE 0 /HPF (0-2); SQUAMOUS EPITHELIAL CELL,UR MANY /LPF; WBC,URINE RARE /HPF (0-4)
[2019-01-24 15:21] LABS: ALBUMIN 3.4 g/dL (3.4-5.0); ALBUMIN/GLOBULIN RATIO 0.8 (1.0-1.7); TOTAL BILIRUBIN 0.2 mg/dL (0.2-1.0); TOTAL PROTEIN 7.8 g/dL (6.4-8.2)
--- NOTE | 2019-01-24 15:54 | RAD ---
Examination: Ultrasound pelvis HISTORY: History of right-sided pelvic pain. COMPARISON: 01/07/2019. FINDINGS: The uterus measures 7.4 x 5.4 x 4.9 cm. The measures 6.6 mm in thickness. The right ovary measures 6.0 x 4.4 x 4.0 cm. There is a 3.8 cm hypoechogenicity identified in the right ovary demonstrating some echogenicity within could be endometrioma or hemorrhagic cyst. There is a 3 cm cystic structure in the right ovary probably a cyst. The left ovary measures 3.9 x 1.8 x 1.6 cm. Blood flow identified in the right and left ovaries. There is linear echogenicity identified in the lower uterine segment likely IUD. IMPRESSION: 1. 3.8 cm hypoechogenicity identified in the right ovary probably endometrioma or hemorrhagic cyst identified. A 3 cm cyst identified in the right ovary. 2. IUD present in the endometrium of the lower uterine segment. Electronically signed by: Earl Ramirez MD (01/24/2019 3:51 PM) [facility]
[2019-01-24 16:00] VITALS: BP 169/92
[2019-01-24] MEDS ORDERED: IV NORMAL SALINE 500ML BAG 500 ML IV ONE (16:00)
[2019-01-24] MEDS ORDERED: ONDANSETRON PF 4 MG/2 ML VIAL. IV ONE (16:15)
[2019-01-24] MEDS ORDERED: MORPHINE SULFATE 2 MG/ML VIAL. IV ONE (16:15)
== END 2019-01-24 16:18 | disposition home or self-care (01) ==
LOC: ER 13:35
DX: N83.201 Unspecified ovarian cyst, right side (principal); I10 Essential (primary) hypertension; Z90.49 Acquired absence of other specified parts of digestive tract; F17.200 Nicotine dependence, unspecified, uncomplicated; Z88.6 Allergy status to analgesic agent; Z88.8 Allergy status to other drugs, medicaments and biological substances
CPT/HCPCS: 36415; 76830; 76856; 80053; 81001; 81025; 85025; 96374; 96375; 99285; J2270; J2405

== ENCOUNTER 2019-02-11 11:27 | Emergency (ER) | payer SELFPAY ==
[~2019-02-11] VITALS: Ht 172.7 cm; Wt 120.2 kg
[2019-02-11 11:52] VITALS: BP 164/102
--- NOTE | 2019-02-11 12:32 | PHYS DOC ---
Past Medical History Past Medical History: Anxiety, Bipolar, Depression, Hypertension Additional Past Medical Histor: insomnia,PTSD,PANIC ATTACKS Past Surgical History: No Surgical History, Cholecystectomy, Tonsillectomy, Other Additional Past Surgical Histo: R ANKLE, R FEMUR, OVARIAN CYSTS Alcohol Use: None Drug Use: None Adult General Chief Complaint Chief Complaint: NOSEBLEED [facility] HPI Patient is a 28 year old female that presents with nosebleed. States her nose bled yesterday and then stopped. Also had a nosebleed today. Reports that bled for approximately 20 minutes. She does have a history of hypertension her blood pressure is 164/102 in the room assessment. Denies pain. Nose has stopped bleeding on arrival. Review of Systems Review of Systems Constitutional: Denies fever or chills [] Eyes: Denies change in visual acuity, redness, or eye pain [] HENT: Reports nose bleed. Respiratory: Denies cough or shortness of breath [] Cardiovascular: No additional information not addressed in HPI [] GI: Denies abdominal pain, nausea, vomiting, bloody stools or diarrhea [] : Denies dysuria or hematuria [] Musculoskeletal: Denies back pain or joint pain [] Integument: Denies rash or skin lesions [] Neurologic: Denies headache, focal weakness or sensory changes [] Endocrine: Denies polyuria or polydipsia [] Complete systems were reviewed and found to be within normal limits, except as documented in this note. Allergies Allergies Allergies Coded Allergies Type Severity Reaction Last Updated Verified ketorolac Allergy Intermediate 01/07/19 Yes lisinopril Allergy Intermediate rash 05/10/14 Yes Physical Exam Physical Exam Constitutional: Well developed, well nourished, no acute distress, non-toxic appearance. [] HENT: Normocephalic, atraumatic, bilateral external ears normal, oropharynx moist, no oral exudates, Nose has dried blood in turbinate. Bleeding is controlled. Eyes: PERRLA, EOMI, conjunctiva normal, no discharge. [] Abdomen: Bowel sounds normal, soft, no tenderness, no masses, no pulsatile masses. [] Skin: Warm, dry, no erythema, no rash. [] Back: No tenderness, no CVA tenderness. [] Extremities: No tenderness, no cyanosis, no clubbing, ROM intact, no edema. [] Neurologic: Alert and oriented X 3, normal motor function, normal sensory function, no focal deficits noted. [] Psychologic: Affect normal, judgement normal, mood normal. [] Current Patient Data Vital Signs Vital Signs Date Time Temp Pulse Resp B/P (MAP) Pulse Ox O2 Delivery O2 Flow Rate FiO2 02/11/19 11:52 98.6 92 16 164/102 (122) 96 Room Air 98.6 EKG EKG [] Radiology/Procedures Radiology/Procedures [] Course & Med Decision Making Course & Med Decision Making Pertinent Labs and Imaging studies reviewed. (See chart for details) Patient is on Metoprolol. Her blood pressure is a 164/102. Discussed with patient that she should make sure to take blood pressure medication and follow up with primary care provider. Dragon Disclaimer Dragon Disclaimer This electronic medical record was generated, in whole or in part, using a voice recognition dictation system. Departure Departure Impression: Primary Impression: Epistaxis not due to trauma Disposition: HOME, SELF-CARE Condition: STABLE Referrals: NO PCP (PCP) Patient Instructions: Nosebleed Additional Instructions: Thank you for visiting [facility]. We appreciate you trusting us with your care. If any additional problems come up don't hesitate to return to visit us. Please follow up with your primary care provider so they can plan additional care if needed and know about the problem that you had. If symptoms worsen come back to the Emergency Department. Any concerning symptoms that start such as chest pain, shortness of air, weakness or numbness on one side of the body, running high fevers or any other concerning symptoms return to the ER. Please follow up with primary care and make sure to take your blood pressure medication as prescribed. ZACHARY HOWARD APRN Feb 11, 2019 12:32
== END 2019-02-11 12:47 | disposition home or self-care (01) ==
LOC: ER 11:27
DX: R04.0 Epistaxis (principal); I10 Essential (primary) hypertension; F31.9 Bipolar disorder, unspecified; Z88.6 Allergy status to analgesic agent; Z88.8 Allergy status to other drugs, medicaments and biological substances
CPT/HCPCS: 99281

== ENCOUNTER 2019-04-25 22:46 | Emergency (ER) | payer OTHER ==
[~2019-04-25] VITALS: Ht 172.7 cm; Wt 119.7 kg
--- NOTE | 2019-04-25 23:36 | PHYS DOC ---
Past Medical History Past Medical History: Anxiety, Bipolar, Depression, Hypertension Additional Past Medical Histor: insomnia,PTSD,PANIC ATTACKS (BERNADETTE DE DIOS APRN) Past Surgical History: No Surgical History, Cholecystectomy, Tonsillectomy, Other Additional Past Surgical Histo: R ANKLE, R FEMUR, OVARIAN CYSTS (BERNADETTE DE DIOS APRN) Alcohol Use: None Drug Use: None (BERNADETTE DE DIOS APRN) Adult General Chief Complaint Chief Complaint: FLANK PAIN HPI HPI Patient is a 29 year old female] who presents with [right flank pain. Patient reports pain started approximately 1:00 this afternoon, has continued all day and got worse throughout the night. States she has tried some ibuprofen for discomfort, minimal to no relief. States she does have some nausea when the pain is severe. Reports she has a history of kidney stones, last was a few months ago, has always been able to pass her stones. States she is a history of ovarian cysts. States last bowel movement was morning, denies any change in bowel habits. Reports her symptoms today feel like what she normally has when she has a kidney stone] (BERNADETTE DE DIOS APRN) Review of Systems Review of Systems Constitutional: Denies fever or chills [] Eyes: Denies change in visual acuity, redness, or eye pain [] HENT: Denies nasal congestion or sore throat [] Respiratory: Denies cough or shortness of breath [] Cardiovascular: No additional information not addressed in HPI [] GI: Reports right flank pain,, nausea, denies vomiting, bloody stools or diarrhea [] : Denies dysuria or hematuria does report some burning with her urination today[] Musculoskeletal: Denies back pain or joint pain does complain of right flank pain[] Integument: Denies rash or skin lesions [] Neurologic: Denies headache, focal weakness or sensory changes [] Endocrine: Denies polyuria or polydipsia [] All other systems were reviewed and found to be within normal limits, except as documented in this note. (BERNADETTE DE DIOS APRN) Current Medications Current Medications Current Medications Medications (Trade) Dose Ordered Sig/Kayd Start Time Stop Time Status Last Admin Dose Admin Fentanyl Citrate (Fentanyl 2ml Vial) 50 mcg 1X ONCE 04/26/19 00:30 04/26/19 00:31 DC 04/26/19 00:22 50 MCG Ondansetron HCl (Zofran) 4 mg 1X ONCE 04/25/19 23:45 04/25/19 23:46 DC 04/26/19 00:07 4 MG Sodium Chloride 1,000 ml @ 1,000 mls/hr 1X ONCE 04/25/19 23:45 04/26/19 00:44 DC 04/26/19 00:06 1,000 MLS/HR (TAMIA MAGAÑA MD) Allergies Allergies Allergies Coded Allergies Type Severity Reaction Last Updated Verified ketorolac Allergy Intermediate 01/07/19 Yes lisinopril Allergy Intermediate rash 05/10/14 Yes (TAMIA MAGAÑA MD) Physical Exam Physical Exam Constitutional: Well developed, well nourished, no acute distress, non-toxic appearance. [] Cardiovascular:Heart rate regular rhythm, no murmur [] Lungs & Thorax: Bilateral breath sounds clear to auscultation [] Abdomen: Bowel sounds normal, soft, no tenderness, no masses, no pulsatile masses. [] Skin: Warm, dry, no erythema, no rash. [] Back: No tenderness, right CVA tenderness. [] Extremities: No tenderness, no cyanosis, no clubbing, ROM intact, no edema. [] Neurologic: Alert and oriented X 3, normal motor function, normal sensory function, no focal deficits noted. [] Psychologic: Affect normal, judgement normal, mood normal. [] (BERNADETTE DE DIOS APRN) Current Patient Data Vital Signs Vital Signs Date Time Temp Pulse Resp B/P (MAP) Pulse Ox O2 Delivery O2 Flow Rate FiO2 04/26/19 01:02 75 20 170/97 (121) 92 Room Air 04/25/19 23:13 98.5 98.5 (TAMIA MAGAÑA MD) Lab Values Laboratory Tests Test 04/25/19 23:20 04/25/19 23:25 04/25/19 23:35 Urine Collection Type Unknown Urine Color Yellow Urine Clarity Clear Urine pH 6.5 Urine Specific [place] 1.020 Urine Protein Negative mg/dL (NEG-TRACE) Urine Glucose (UA) Negative mg/dL (NEG) Urine Ketones (Stick) Negative mg/dL (NEG) Urine Blood Small (NEG) Urine Nitrite Negative (NEG) Urine Bilirubin Negative (NEG) Urine Urobilinogen Dipstick 1.0 mg/dL (0.2 mg/dL) Urine Leukocyte Esterase Moderate (NEG) Urine RBC 0 /HPF (0-2) Urine WBC 1-4 /HPF (0-4) Urine Squamous Epithelial Cells Mod /LPF Urine Bacteria Few /HPF (0-FEW) Urine Mucus Mod /LPF Sodium Level 137 mmol/L (136-145) Potassium Level 3.6 mmol/L (3.5-5.1) Chloride Level 103 mmol/L (98-107) Carbon Dioxide Level 20 mmol/L (21-32) L Anion Gap 14 (6-14) Blood Urea Nitrogen 9 mg/dL (7-20) Creatinine 0.9 mg/dL (0.6-1.0) Estimated GFR (Cockcroft-Gault) 73.0 BUN/Creatinine Ratio 10 (6-20) Glucose Level 97 mg/dL (70-99) Calcium Level 8.4 mg/dL (8.5-10.1) L Total Bilirubin 0.1 mg/dL (0.2-1.0) L Aspartate Amino Transferase (AST) 17 U/L (15-37) Alanine Aminotransferase (ALT) 21 U/L (14-59) Alkaline Phosphatase 112 U/L (46-116) Total Protein 7.7 g/dL (6.4-8.2) Albumin 3.4 g/dL (3.4-5.0) Albumin/Globulin Ratio 0.8 (1.0-1.7) L POC Urine HCG, Qualitative Hcg negative (Negative) Laboratory Tests 04/25/19 23:25 (TAMIA MAGAÑA MD) Lab Values Laboratory Tests Test 04/25/19 23:20 04/25/19 23:25 04/25/19 23:35 Urine Collection Type Unknown Urine Color Yellow Urine Clarity Clear Urine pH 6.5 Urine Specific [place] 1.020 Urine Protein Negative mg/dL (NEG-TRACE) Urine Glucose (UA) Negative mg/dL (NEG) Urine Ketones (Stick) Negative mg/dL (NEG) Urine Blood Small (NEG) Urine Nitrite Negative (NEG) Urine Bilirubin Negative (NEG) Urine Urobilinogen Dipstick 1.0 mg/dL (0.2 mg/dL) Urine Leukocyte Esterase Moderate (NEG) Urine RBC 0 /HPF (0-2) Urine WBC 1-4 /HPF (0-4) Urine Squamous Epithelial Cells Mod /LPF Urine Bacteria Few /HPF (0-FEW) Urine Mucus Mod /LPF Sodium Level 137 mmol/L (136-145) Potassium Level 3.6 mmol/L (3.5-5.1) Chloride Level 103 mmol/L (98-107) Carbon Dioxide Level 20 mmol/L (21-32) L Anion Gap 14 (6-14) Blood Urea Nitrogen 9 mg/dL (7-20) Creatinine 0.9 mg/dL (0.6-1.0) Estimated GFR (Cockcroft-Gault) 73.0 BUN/Creatinine Ratio 10 (6-20) Glucose Level 97 mg/dL (70-99) Calcium Level 8.4 mg/dL (8.5-10.1) L Total Bilirubin 0.1 mg/dL (0.2-1.0) L Aspartate Amino Transferase (AST) 17 U/L (15-37) Alanine Aminotransferase (ALT) 21 U/L (14-59) Alkaline Phosphatase 112 U/L (46-116) Total Protein 7.7 g/dL (6.4-8.2) Albumin 3.4 g/dL (3.4-5.0) Albumin/Globulin Ratio 0.8 (1.0-1.7) L POC Urine HCG, Qualitative Hcg negative (Negative) Laboratory Tests 04/25/19 23:25 (BERNADETTE DE DIOS APRN) EKG EKG [] (BERNADETTE DE DIOS APRN) Radiology/Procedures Radiology/Procedures []FINDINGS: Abdominal aorta is not aneurysmal. Postcholecystectomy changes without intrahepatic bile duct dilation. No peripancreatic fluid collection. No perisplenic hemorrhage. No left-sided hydronephrosis. Urinary bladder is largely decompressed. No right-sided hydronephrosis. Intrauterine device at lower uterine segment. No periappendiceal inflammatory changes. No dilated loops of bowel to suggest obstruction. Small fat-containing umbilical hernia. Fullness of the right adnexa is again seen measuring up to about 52 x 45 mm. Postoperative changes right proximal femur with intramedullary franklin. Degenerative changes the spine. There is some wedging of multiple lower thoracic vertebral bodies. IMPRESSION: * No hydronephrosis. * No evidence of appendicitis. * Repeat demonstration of fullness of the right adnexa which could be from an enlarged ovary with right ovarian lesion. Electronically signed by: Alexy Sun MD (04/26/2019 12:46 AM) [facility] (BERNADETTE DE DIOS APRN) Course & Med Decision Making Course & Med Decision Making Pertinent Labs and Imaging studies reviewed. (See chart for details) []Discussed findings of right ovarian cyst causing discomfort. Discussed follow up as needed with PCP or OBGYN Discussed lab and urine with noted bacteruria, will provide ABx for UTI (BERNADETTE DE DIOS APRN) Course & Med Decision Making Staff Physician Addendum: I was working in the ER during the course of this patient's visit. I was available for consultation as needed, but I was not directly involved in the care of this patient. (TAMIA MAGAÑA MD) Dragon Disclaimer Dragon Disclaimer This electronic medical record was generated, in whole or in part, using a voice recognition dictation system. (BERNADETTE DE DIOS APRN) Departure Departure Impression: Primary Impression: Ovarian cyst Additional Impression: Urinary tract infection Disposition: HOME, SELF-CARE Condition: STABLE Referrals: NO PCP (PCP) Patient Instructions: Ovarian Cyst Additional Instructions: As we discussed, you were found to have another ovarian cyst today. This is most likely the cause of your discomfort. Continue to take tylenol or ibuprofen for discomfort. Don't take more than 800 mg ibuprofen every 8 hours. Follow up with your primary care provider or OBGYN if you continue to have some discomfort. Scripts Ciprofloxacin Hcl (CIPROFLOXACIN HCL) 500 Mg Tablet 500 MG PO BID for 3 Days, #6 TAB Prov: BERNADETTE DE DIOS APRN 04/26/19 Problem Qualifiers Primary Impression: Ovarian cyst Laterality: right Qualified Codes: N83.201 - Unspecified ovarian cyst, right side Additional Impression: Urinary tract infection Urinary tract infection type: acute cystitis Hematuria presence: without hematuria Qualified Codes: N30.00 - Acute cystitis without hematuria BERNADETTE DE DIOS APRN Apr 25, 2019 23:36 TAMIA MAGAÑA MD Apr 27, 2019 00:31
[2019-04-25 23:40] LABS: BILIRUBIN,URINE NEGATIVE (NEG); CLARITY,URINE CLEAR; COLOR,URINE YELLOW; NITRITE,URINE NEGATIVE (NEG); PH,URINE 6.5; PROTEIN,URINE NEGATIVE (NEG-TRACE)
[2019-04-25] MEDS ORDERED: IV NORMAL SALINE 1000ML BAG 1,000 ML IV ONE (23:45)
[2019-04-25] MEDS ORDERED: ONDANSETRON PF 4 MG/2 ML VIAL. IV ONE (23:45)
[2019-04-25 23:53] LABS: SQUAMOUS EPITHELIAL CELL,UR MOD /LPF
[2019-04-25 23:54] LABS: CALCIUM 8.4 mg/dL (8.5-10.1); CREATININE 0.9 mg/dL (0.6-1.0); POTASSIUM 3.6 mmol/L (3.5-5.1)
[2019-04-25 23:54] LABS: BACTERIA,URINE FEW /HPF (0-FEW); RBC,URINE 0 /HPF (0-2)
[2019-04-26] LABS: TOTAL BILIRUBIN 0.1 mg/dL (0.2-1.0); TOTAL PROTEIN 7.7 g/dL (6.4-8.2)
[2019-04-26 00:15] LABS: ALBUMIN 3.4 g/dL (3.4-5.0); ALBUMIN/GLOBULIN RATIO 0.8 (1.0-1.7)
[2019-04-26] MEDS ORDERED: fentaNYL PF VIAL 100 MCG/2 ML VIAL IV ONE (00:30)
--- NOTE | 2019-04-26 00:49 | RAD ---
INDICATION: Right flank pain COMPARISON: January 07, 2019 TECHNIQUE: Axial CT images obtained through the abdomen and pelvis without contrast. Limited assessment of solid organ structures and vasculature secondary to lack of intravenous contrast.. One or more of the following individualized dose reduction techniques were utilized for this examination: 1. Automated exposure control; 2. Adjustment of the mA and/or kV according to patient size; 3. Use of iterative reconstruction technique. FINDINGS: Abdominal aorta is not aneurysmal. Postcholecystectomy changes without intrahepatic bile duct dilation. No peripancreatic fluid collection. No perisplenic hemorrhage. No left-sided hydronephrosis. Urinary bladder is largely decompressed. No right-sided hydronephrosis. Intrauterine device at lower uterine segment. No periappendiceal inflammatory changes. No dilated loops of bowel to suggest obstruction. Small fat-containing umbilical hernia. Fullness of the right adnexa is again seen measuring up to about 52 x 45 mm. Postoperative changes right proximal femur with intramedullary franklin. Degenerative changes the spine. There is some wedging of multiple lower thoracic vertebral bodies. IMPRESSION: * No hydronephrosis. * No evidence of appendicitis. * Repeat demonstration of fullness of the right adnexa which could be from an enlarged ovary with right ovarian lesion. Electronically signed by: Alexy Sun MD (04/26/2019 12:46 AM) [facility]
[2019-04-26] MEDS ORDERED: CIPR500T PO (00:59)
[2019-04-26 01:02] VITALS: BP 170/97
== END 2019-04-26 01:13 | disposition home or self-care (01) ==
LOC: ER 22:46
DX: N83.201 Unspecified ovarian cyst, right side (principal); N30.00 Acute cystitis without hematuria; F31.9 Bipolar disorder, unspecified; F41.9 Anxiety disorder, unspecified; I10 Essential (primary) hypertension; Z90.49 Acquired absence of other specified parts of digestive tract; Z88.6 Allergy status to analgesic agent; Z88.8 Allergy status to other drugs, medicaments and biological substances
CPT/HCPCS: 36415; 74176; 80053; 81001; 81025; 87086; 96374; 96375; 99285; J2405; J3010; J7030

== ENCOUNTER → 2020-04-14 | Outpatient (CLI) | payer OTHER ==
[~2020-04-14] MED LIST changes: +CIPR500T PO; +CLON1TAB PO; +FAMO20TA5 PO; +FLUO40CA9 PO; +HYDR-3165 PO; +LITH300T3 PO; +METO100T7 PO; +QUET300T5 PO; +TOPI25TA7 PO; +ZOLP5TAB PO
== END ==
LOC: LAB 13:39
PROVIDERS: ATTEND Orthopaedic Surgery
DX: Z01.812 Encounter for preprocedural laboratory examination (principal); Z20.828 Contact with and (suspected) exposure to other viral communicable diseases
CPT/HCPCS: U0003

== ENCOUNTER 2020-04-18 06:08 | Day surgery (SDC) | payer OTHER ==
[~2020-04-18] VITALS: Ht 172.7 cm; Wt 132.0 kg
[~2020-04-18 06:08] MED LIST changes: -HYDR-3165 PO
[2020-04-18] MEDS ORDERED: BUPIVACAINE MPF 0.25% 30 ML VIAL. ONE (06:48)
[2020-04-18] MEDS ORDERED: HYDR-3165 PO (06:49)
--- NOTE | 2020-04-18 06:51 | DISCH ---
DISCHARGE INSTRUCTIONS Condition on Discharge Condition on Discharge: Stable Activity After Discharge Activity Instructions for Disc: Other, see below Lifting Instructions after Dis: No heavy lifting, No pulling or pushing (gentle motion of right elbow to keep nerve gliding and avoid scarring) Diet after Discharge Diet after Discharge: Regular Wound Incision Care Wound/Incision Care: Change dressing (remove dressing in 3 days may then shower, no soaking) Contacting the [facility] after DC Call your doctor for: Concerns you may have Follow-Up Follow up with: Dr. Encinas 10 days PATY ENCINAS MD Apr 18, 2020 06:51
[2020-04-18] MEDS ORDERED: MORPHINE SULFATE 2 MG/ML VIAL. IV PRN (07:00)
[2020-04-18] MEDS ORDERED: IV RINGERS,LACTATED 1000ML 1,000 ML IV SCH (07:00)
[2020-04-18] MEDS ORDERED: fentaNYL PF VIAL 100 MCG/2 ML VIAL IV PRN (07:00)
[2020-04-18] MEDS ORDERED: HYDROmorphone 2 MG/ML VIAL IV PRN (07:00)
[2020-04-18] MEDS ORDERED: PROCHLORPERAZINE 10 MG/2 ML VIAL. IV PRN (07:00)
[2020-04-18] MEDS ORDERED: ONDANSETRON PF 4 MG/2 ML VIAL. IV PRN (07:00)
[2020-04-18 07:09] LABS: CALCIUM 8.8 mg/dL (8.5-10.1); GFR 64.3; POTASSIUM 3.9 mmol/L (3.5-5.1)
[2020-04-18] MEDS ORDERED: fentaNYL PF VIAL 100 MCG/2 ML VIAL ONE ×2 (07:15→08:32)
[2020-04-18] MEDS ORDERED: MIDAZOLAM HCL/PF 2 MG/2 ML VIAL. ONE (07:15)
[2020-04-18 07:16] LABS: BASO # 0.1 x10^3/uL (0.0-0.2); BASO % 1 % (0-3); EOS # 0.6 x10^3/uL (0.0-0.7); EOS % 5 % (0-3); HEMATOCRIT 42.5 % (36.0-47.0); LYMPH # 2.4 x10^3/uL (1.0-4.8); LYMPH % 20 % (24-48); MEAN CORPUSCULAR HEMOGLOBIN 29 pg (25-35); MEAN CORPUSCULAR HGB CONC 33 g/dL (31-37); MEAN CORPUSCULAR VOLUME 88 fL (79-100); MONO # 0.7 x10^3/uL (0.0-1.1); MONO % 6 % (0-9); NEUT # 8.1 x10^3/uL (1.8-7.7); NEUT % 68 % (31-73); PLATELET COUNT 293 x10^3/uL (140-400); RED BLOOD COUNT 4.85 x10^6/uL (3.50-5.40); RED CELL DISTRIBUTION WIDTH 15.4 % (11.5-14.5)
[2020-04-18] MEDS ORDERED: PROPOFOL 10 MG/ML (20ML) VIAL. IV ONE (07:36)
[2020-04-18] MEDS ORDERED: ONDANSETRON PF 4 MG/2 ML VIAL. ONE (07:36)
[2020-04-18] MEDS ORDERED: DEXAMETHASONE SOD PHOS 4 MG/ML VIAL ONE (07:36)
[2020-04-18] MEDS ORDERED: LIDOCAINE 2% PF 5 ML VIAL. ONE (07:36)
[2020-04-18] MEDS ORDERED: SEVOFLURANE 31 TO 60 MINUTES. IH ONE (08:12)
[2020-04-18] MEDS: fentaNYL PF VIAL 100 MCG/2 ML VIAL IV PRN ×2 (08:38→08:44)
[2020-04-18] MEDS ORDERED: HYDROcodone/APAP 7.5/325MG 1 TAB TABLET PO ONE (09:00)
[2020-04-18] MEDS ORDERED: HYDROcodone/APAP 7.5/325MG 1 TAB TABLET PO PRN (09:15)
[2020-04-18 09:20] VITALS: BP 137/73
--- NOTE | 2020-04-18 09:58 | PDOC4 ---
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 I had gone over with her the rationale for operative release and the possibility of incomplete relief nerve or blood vessel damage infection medical or other anesthetic complications among others she wishes to proceed with surgical e valuation and treatment having given informed consent Operative text: Patient was identified procedure verified patient placed in the supine position on the operating table. After adequate amounts of general anesthesia were administered the right upper extremity was prepped and draped in the standard sterile fashion with an upper arm tourniquet. After timeout was performed patient procedure identified and verified the right upper extremity was exsanguinated by Esmarch bandage tourniquet inflated to 300 mmHg a curvilinear incision was made over the medial elbow dissection was carried out down to the medial aspect of the cubital tunnel which had a little bit of covering by the anconeus muscle and it was dissected out proximally and the extent of the cubital tunnel was released she was noted to have moderate to severe compression at the midpoint of the cubital tunnel and also moderate to severe compression at its insertion into the flexor pronator musculature. Fascia was released as was some of the muscular fibers to avoid further impingement on the nerve. Proximal release was carried out up to the intermuscular septum and there was no instability of the nerve through range of motion. The irrigation carried out normal saline solution bleeding points controlled by bipolar electrocautery subcutaneous closure with buried Vicryl suture skin closure with nylon sutures. Sterile soft dressings were placed patient was returned to recovery room in stable condition having tolerated the procedure well PATY ACOSTA MD Apr 18, 2020 09:58
== END 2020-04-18 10:08 | disposition home or self-care (01) ==
LOC: SURG 06:08
PROVIDERS: ATTEND Orthopaedic Surgery
DX: G56.21 Lesion of ulnar nerve, right upper limb (principal); I10 Essential (primary) hypertension; K21.9 Gastro-esophageal reflux disease without esophagitis; F41.9 Anxiety disorder, unspecified; F32.9 Major depressive disorder, single episode, unspecified; E66.9 Obesity, unspecified; F17.210 Nicotine dependence, cigarettes, uncomplicated; Z90.49 Acquired absence of other specified parts of digestive tract; Z90.710 Acquired absence of both cervix and uterus; Z98.890 Other specified postprocedural states; Z72.89 Other problems related to lifestyle; Z79.899 Other long term (current) drug therapy; Z88.8 Allergy status to other drugs, medicaments and biological substances
CPT/HCPCS: 36415; 64718; 80048; 85025; J0690; J1100; J2250; J2405; J2704; J3010; J3490

== ENCOUNTER → 2020-05-09 | Outpatient (CLI) | payer OTHER ==
[2020-04-18 09:20] VITALS: BP 137/73
[~2020-05-09] MED LIST changes: +HYDR-3165 PO
--- NOTE | 2020-05-09 14:44 | KCIC ---
INDICATION: Reason: CHRONIC LOWER BACK PAIN INCREASING X 4 DAYS / Spl. Instructions: / History: COMPARISON: April 2019 IMPRESSION: Lumbar spine: 3 views obtained. Degenerative changes the lumbar spine with osteophyte formation at the vertebral body endplates as well as facet hypertrophy. Mild scoliotic curvature the spine. Mild wedging of vertebral bodies near thoracic lumbar junction including T12, T11 and T10. Electronically signed by: Alexy Sun MD (05/09/2020 2:41 PM) [id number]
== END ==
LOC: KCIC 14:10
PROVIDERS: ATTEND Family Medicine
DX: M47.816 Spondylosis without myelopathy or radiculopathy, lumbar region (principal); M43.8X6 Other specified deforming dorsopathies, lumbar region; M25.78 Osteophyte, vertebrae; G89.29 Other chronic pain
CPT/HCPCS: 72100